=== PATIENT | male | born 1995 | race Two or more races ===

== ENCOUNTER 2024-10-10 14:21 | Emergency (ER) | payer MEDICAID, SELFPAY ==
[2024-10-10 14:32] VITALS: BP 130/71; PULSE 90; RESP 17; TEMP 37.3; O2SAT 96; BMI 33.0
[2024-10-10 14:49] VITALS: BMI 32.1
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
== END 2024-10-10 15:24 ==
LOC: SERX 15:37
PROVIDERS: Emergency Provider Emergency Medicine
DX: Z02.89 Encounter for other administrative examinations (principal); S01.112A Laceration without foreign body of left eyelid and periocular area, initial encounter; Y35.831A Legal intervention involving a conducted energy device, law enforcement official injured, initial encounter
CPT/HCPCS: 12011; 99283